=== PATIENT | male | born 1995 | race Caucasian/White ===

== ENCOUNTER → 2019-03-08 | Outpatient (CLI) | payer OTHER ==
[2019-03-08 13:49] VITALS: BP 151/80
== END | disposition home or self-care (01) ==
LOC: SURG 13:25
PROVIDERS: ATTEND Anesthesiology Pain Medicine
DX: M47.814 Spondylosis without myelopathy or radiculopathy, thoracic region (principal); M79.18 Myalgia, other site
CPT/HCPCS: 99203